=== PATIENT | male | born 1965 | race Caucasian/White ===

== ENCOUNTER 2019-01-09 13:07 | Emergency (ER) | payer MEDICAID ==
[~2019-01-09] VITALS: Ht 188 cm; Wt 79.4 kg
[2019-01-09 13:20] VITALS: BP 115/81
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
[2019-01-09] MEDS ORDERED: Meclizine 25mg tab ORAL PRN (13:30)
--- NOTE | 2019-01-09 14:12 | NUR ---
ED Nurse Note: pt to ct scan
--- NOTE | 2019-01-09 14:14 | NUR ---
ED Nurse Note: returned from ct scan
--- NOTE | 2019-01-09 14:20 | NUR ---
ED Nurse Note: pt refusing antivert at this time. pt states makes him feel worse and has no ride home. pa aware
--- NOTE | 2019-01-09 14:27 | Diagnostic Imaging Report ---
Indication: Head trauma headache Technique: Contiguous 5 mm thick transaxial imaging of the head obtained in a Siemens Sensation [address] scanner. Soft tissue and bone windows generated. Automatic Exposure Control was utilized. Total Dose length Product (DLP): 1425.[address] Dose Index Volume (CTDIvol): 70.38 mGy Comparison: none Findings: The size and configuration of the cortical sulci, basal cisterns, and ventricles are within normal limits for age. There is no mass effect, midline shift, or edema identified. There is no evidence of acute hemorrhage or abnormal intra-axial or extra-axial fluid collections. The bones and soft tissues are unremarkable. Impression: No mass effect, edema or acute bleed. The CT scanner at [facility] is accredited by the [employer] and the scans are performed using dose optimization techniques as appropriate to a performed exam including Automatic Exposure control.
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
[2019-01-09] MEDS ORDERED: MECLIZINE HCL25 MG ORAL (14:36)
--- NOTE | 2019-01-09 14:44 | NUR ---
ER DISCHARGE NOTE: Patient is cleared to be discharged per ERMD, pt is aox4, on room air, with stable vital signs. pt was given dc and prescription instructions, pt was able to verbalize understanding, pt id band d/c. pt is able to ambulate with steady gait. pt took all belongings.
[2019-01-09 14:45] VITALS: BP 132/77
== END 2019-01-09 18:44 | disposition home or self-care (01) ==
LOC: EMR 14:10
DX: R42 Dizziness and giddiness (principal); S00.93XA Contusion of unspecified part of head, initial encounter; V49.9XXA Car occupant (driver) (passenger) injured in unspecified traffic accident, initial encounter; Y92.410 Unspecified street and highway as the place of occurrence of the external cause
CPT/HCPCS: 70450; 99284